=== PATIENT | female | born 1975 | race Caucasian/White ===

== ENCOUNTER 2016-07-19 13:58 | Outpatient (CLI) ==
[2015-12-13 13:12] VITALS: BMI 25.0
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
== END 2016-07-19 13:59 | disposition home or self-care (01) ==
LOC: RAD 13:58
PROVIDERS: ATTEND Nurse Practitioner Family
DX: M54.2 Cervicalgia (principal)

== ENCOUNTER 2016-07-20 13:53 | Outpatient (CLI) ==
[2015-12-13 13:12] VITALS: BMI 25.0
--- NOTE | 2016-07-20 17:29 | MRI ---
EXAM: MRI lumbar spine without IV contrast. DATE: 07/20/2016. HISTORY: Unspecified Dorsaligia. Low back pain and bilateral lower extremity pain/numbness. TECHNIQUE: Sagittal and axial T1W and T2W sequences of the lumbar spine along with sagittal IR and coronal T2W sequences were obtained using 1.2 Althea magnet. No IV contrast. COMPARISON: CT chest 12/13/2015. CT L-spine 12/13/2015. FINDINGS: There are four classic [id number] lumbar vertebra. Previous chest CT demonstrates 1 2 thoracic vertebra with classic paired ribs. At the thoracolumbar junction, there is a transitional vertebra with either hypoplastic ribs or unusual transverse processes. For the purposes of this di ctation, this transitional vertebra is referred to as L1. At the lumbosacral junction, there is a t ransitional vertebra. For the purposes of this dictation, this transitional vertebra is referred to as S1 with lumbarization. Mild rotatory levoscoliosis of the lumbar spine is noted. No acute lumbar fracture, subluxation, os seous malignancy, or pars interarticularis defect is identified. Lumbar vertebra are normal in heig ht. A T2W/T1W bright, 9.6 mm focus in the T12 body is likely a benign hemangioma. Bone marrow sign al is normal. Minor disc space narrowing is seen at L5-S1. S1-2 intervertebral disc is congenitall y narrow. No sacral fracture or stress reaction is apparent. SI joints are unremarkable. Conus me dullaris terminates at L1-2. Visible spinal cord is normal. No retroperitoneal lymphadenopathy, paraspinal mass, or aortic aneurysm is detected. Psoas muscles are normal. Mild bilateral posterior paraspinal muscle atrophy is seen at L5, S1, and S2. Visible portions of the liver, spleen, adrenal glands, pancreas, gallbladder, and kidneys reveal no malignan cy. No bowel obstruction neoplasm is evident. A T2 W bright, 3 cm lesion of the left adnexa is lik mattie an ovarian cyst/dominant follicle. Segmental analysis: T12-L1: Normal. L1-2: Left paracentral disc protrusion (2.2 mm AP x 9 mm transverse) does not contact the conus or cause central stenosis. Each foramen is patent. L2-3: Normal. L3-4: Normal. L4-5: Normal. L5-S1: Minor posterior to foraminal disc bulge, midline disc protrusion (2.7 mm AP x 9 mm transvers e), and mild right facet arthropathy cause minimal right foraminal narrowing. No central canal sten osis. Tiny right facet effusion is seen. S1-2: Partial sacralization of S1. No disc protrusion, central stenosis or foraminal stenosis. IMPRESSIONS: 1. Four classic lumbar vertebra. Transitional vertebra and L1 and S1. 2. No lumbar spine central canal stenosis. 3. Minor right foraminal narrowing at L5-S1. 4. Benign hemangioma in the T12 vertebra. 5. Left adnexal/ovarian cyst (likely benign).
== END 2016-07-20 13:54 | disposition home or self-care (01) ==
LOC: RAD 13:53
PROVIDERS: ATTEND Nurse Practitioner Family
DX: M54.5 Low back pain (principal); G89.29 Other chronic pain

== ENCOUNTER 2016-07-21 10:09 | Emergency (ER) ==
[2016-07-21 10:16] VITALS: BP 114/72; TEMP 97; BMI 25.8
--- NOTE | 2016-07-21 10:32 | ED.PDOC ---
General ED Provider: Dr. DANNIE CARMONA JR Chief Complaint: Back Pain Stated Complaint: INCREASING BACK PAIN OVER SEVERAL MONTHS...HX OF BACK PROBLEMS. HAS RESULTS FROM MRI OF CERVICAL SPINE TWO DAYS AGO...BACK MRI WAS DONE YESTERDAY. 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 on review of past visits has followed up with obgyn, note 12/13/15 had pabs including b12 without concerning results; taya notes is in referral process for neurosurgery will allow im med for pain and indocin - is tender mid lumbar spine but mri appears essentially normal. agree with consultation NS reasonable but would consider neurology first- informed patient Time Seen by Physician: 10:32 Mode of Arrival: Walk-In Information Source: Patient Exam Limitations: No limitations Primary Care Provider: NOHEMY PEDERSON Nursing and Triage Documentation Reviewed and Agree: No Review of Systems - Review Of Systems Constitutional: Reports: Weakness Eyes: Reports: No symptoms Ears, Nose, Mouth, Throat: Reports: No symptoms Respiratory: Reports: No symptoms Cardiac: Reports: No symptoms GI: Reports: No symptoms : Reports: No symptoms Musculoskeletal: Reports: Back pain Skin: Reports: No symptoms Neurological: Reports: Numbness, Tingling, Weakness, Other (NO FOCAL CHANGES ON PE NEGATIVE SLR BILATERALLY) Endocrine: Reports: No symptoms Hematologic/Lymphatic: Reports: No symptoms All Other Systems: Other Past Medical History - Past Medical History Endocrine: Reports: None Cardiovascular: Reports: None Respiratory: Reports: Bronchitis Hematological: Reports: None Gastrointestinal: Reports: None Genitourinary: Reports: UTI, Kidney stones Neuro/Psych: Reports: Migraine Musculoskeletal: Reports: Arthritis, Other (Neck pain ) Cancer: Reports: None Last Menstrual Period: N/A Other Pertinent Past Medical History: HYPOTENSION; "PAUSE" AT 23, CHRONIC NECK PROBLEMS - Surgical History General Surgical History: Reports: Hysterectomy, Tubal ligation - Family History Family History: Reports: Heart - Social History Smoking Status: Never smoker Hx Substance Use: No Alcohol Screening: None - Immunizations Tetanus Shot up to Date: No Physical Exam - Physical Exam Appearance: Well-appearing Pain Distress: Moderate Eyes: MINI, EOMI, Conjunctiva clear ENT: Ears normal, Nose normal, Oropharynx normal Neck: Supple Respiratory: Airway patent, Breath sounds clear, Breath sounds equal, Respirations nonlabored Cardiovascular: RRR, Pulses normal, No rub, No murmur GI/: Soft, Nontender, No masses, Bowel sounds normal, No Organomegaly Musculoskeletal: Normal strength, ROM intact, No edema, No calf tenderness ( BACK TENDERNESS AT LS SPINE) Skin: Warm, Dry, Normal color Neurological: Sensation intact, Motor intact, Reflexes intact, Cranial nerves intact, Alert, Oriented Psychiatric: Affect appropriate, Mood appropriate Critical Care Note - Critical Care Note Total Time (mins): 0 Course - Course Orders, Labs, Meds: Orders Category Date Time Status Ketorolac Tromethamine [Toradol] MEDS 07/21/16 10:32 Discontinued 60 mg IM ONCE STA Promethazine HCl [Phenergan 25 mg/ml Vial] MEDS 07/21/16 10:32 Discontinued 25 mg IM ONCE STA Medications Discontinued Medications Generic Name Dose Route Start Last Admin Trade Name Freq PRN Reason Stop Dose Admin Ketorolac Tromethamine 60 mg 07/21/16 10:32 07/21/16 10:47 Toradol IM 07/21/16 10:33 60 mg ONCE STA Administration Promethazine HCl 25 mg 07/21/16 10:32 07/21/16 10:49 Phenergan 25 Mg/Ml Vial IM 07/21/16 10:33 25 mg ONCE STA Administration Vital Signs: Temp Pulse Resp BP Pulse Ox 07/21/16 10:09 97 F L 79 20 114/72 98 Departure - Departure Time of Disposition: 10:52 Disposition: HOME SELF-CARE Discharge Problem: Back pain Instructions: Low Back Strain (ED), Chronic Back Pain (ED) Condition: Fair Pt referred to PMD for follow-up: Yes Additional Instructions: may try Indocin for pain(not with other NSAIDS) follow up PMD as scheduled call about referrals MRI does not show any ominous findings Prescriptions: Indomethacin [Indocin] 25 mg PO TIDWM PRN #30 capsule PRN Reason: PAIN Allergies/Adverse Reactions: Allergies morphine Adverse Reaction (Verified 07/21/16 10:18) Home Medications: Ambulatory Orders Ibuprofen 600 mg PO PRN PRN 10/19/15 Ibuprofen 200 mg PO Q4-8H PRN 07/18/16 Indomethacin [Indocin] 25 mg PO TIDWM PRN #30 capsule 07/21/16
[2016-07-21] MEDS: TORADOL IM STA (10:47)
[2016-07-21] MEDS: PHENERGAN 25 MG/ML VIAL IM STA (10:49)
== END 2016-07-21 11:07 | disposition home or self-care (01) ==
LOC: ED 10:09
DX: M54.9 Dorsalgia, unspecified (principal); R20.0 Anesthesia of skin; R53.1 Weakness
CPT/HCPCS: 96372; 99283

== ENCOUNTER 2016-12-09 12:04 | Outpatient (CLI) ==
[2016-12-09 13:58] LABS: BILIRUBIN,URINE Negative (NEGATIVE); KETONES,URINE Negative (NEGATIVE); LEUKOCYTE ESTERASE ,URINE 1+ (NEGATIVE); NITRITE,URINE Negative (NEGATIVE); PROTEIN,URINE Negative (NEGATIVE); URINE, BLOOD 1+ (NEGATIVE)
[2016-12-09 14:06] LABS: ADD URINE MICROSCOPIC YES
[2016-12-09 14:07] LABS: BACTERIA,URINE 1+ (NOT PRESENT)
== END 2016-12-09 12:05 | disposition home or self-care (01) ==
LOC: LAB 12:04
PROVIDERS: ATTEND Nurse Practitioner Family
DX: N30.01 Acute cystitis with hematuria (principal)
CPT/HCPCS: 81001; 87086; 87186

== ENCOUNTER 2016-12-12 13:07 | Outpatient (CLI) ==
[2016-12-12 13:48] LABS: BASOPHILS % (AUTO) 0.5 % (0.0-3.0); EOSINOPHILS # (AUTO) 0.5 K/ul (0.0-0.7); EOSINOPHILS % (AUTO) 5.3 % (0.0-7.0); HEMATOCRIT 37.5 % (37.0-47.0); HEMOGLOBIN 12.6 g/dl (12.0-16.0); IMMATURE GRANULOCYTE % (AUTO) 0.2 % (0.0-5.0); LYMPHOCYTES # (AUTO) 0.8 K/uL (0.60-3.4); LYMPHOCYTES % (AUTO) 9.1 (10.0-50.0); MEAN CORPUSCULAR HEMOGLOBIN 29.6 pg (27.0-31.0); MEAN CORPUSCULAR HGB CONC 33.6 (31.8-35.4); MEAN CORPUSCULAR VOLUME 88.2 fl (81.0-99.0); MONOCYTES # (AUTO) 0.8 K/uL (0.4-2.0); MONOCYTES % (AUTO) 8.7 (0-10); NEUTROPHILS # (AUTO) 6.6 K/ul (2.0-6.9); NEUTROPHILS % (AUTO) 76.2; PLATELET COUNT 265 10^3/uL (140-440); RED BLOOD COUNT 4.25 10^6/ul (4.20-5.40); WHITE BLOOD COUNT 8.64 K/ul (4.6-10.2)
[2016-12-12 14:51] LABS: ALBUMIN 4.1 g/dL (3.4-5.0); ALBUMIN/GLOBULIN RATIO 1.14; ANION GAP 13.9; BILIRUBIN,TOTAL 0.76 mg/dL (0.00-1.20); BUN/CREATININE RATIO 8.75; CALCIUM 9.9 mg/dL (8.2-10.2); CREATININE 0.8 mg/dL (0.60-1.30); POTASSIUM 3.9 mmol/L (3.5-5.10); TOTAL PROTEIN 7.7 g/dL (6.4-8.2)
== END 2016-12-12 13:08 | disposition home or self-care (01) ==
LOC: LAB 13:07
PROVIDERS: ATTEND Nurse Practitioner Family
DX: J02.9 Acute pharyngitis, unspecified (principal); N30.01 Acute cystitis with hematuria
CPT/HCPCS: 36415; 80053; 85025; 87651; 87880

== ENCOUNTER 2016-12-14 09:13 | Outpatient (CLI) ==
--- NOTE | 2016-12-14 09:45 | US ---
EXAM: Ultrasound abdomen limited. HISTORY: Elevated liver enzymes. COMPARISON: CT 12/13/2015. TECHNIQUE: Abdominal, real time with image documentation: limited (eg, single organ, quadrant, fol low-up) FINDINGS: The liver demonstrates homogeneous echotexture without intrahepatic biliary dilatation. Portal venous flow is normal in direction. The gallbladder is without shadowing stones, wall thicke lindsey or pericholecystic fluid. Common duct measures approximately 0.5 cm. Visualized portions of t he pancreas are unremarkable. IMPRESSION: No sonographic abnormality of the liver, gallbladder or biliary system.
[2016-12-15 11:51] LABS: GAMMA GLUTAMYL TRANSFERASE 141 IU/L (0-60)
== END 2016-12-14 09:14 | disposition home or self-care (01) ==
LOC: RAD 09:13
PROVIDERS: ATTEND Nurse Practitioner Family
DX: R79.89 Other specified abnormal findings of blood chemistry (principal)
CPT/HCPCS: 36415; 80074; 82977

== ENCOUNTER 2016-12-16 09:48 | Outpatient (CLI) ==
--- NOTE | 2016-12-16 10:26 | CT ---
EXAM: CT of the abdomen pelvis with and without contrast History: Elevated liver enzymes. Comparison: Abdominal ultrasound 12/14/2016, CT abdomen pelvis 12/13/2015 Technique: Multiplanar CT images through the abdomen pelvis were obtained with and without the admi nistration of IV contrast Findings: No consolidation seen within the lower lungs. Calcified granuloma again seen within the r ight lower lobe. No acute osseous abnormalities. No renal stones and no hydronephrosis. Appendix is normal. No discrete gallstones identified by CT . The liver and spleen are not enlarged. No evidence for a fatty liver. Portal veins are patent. Pancreas is within normal limits. No renal masses. No bowel obstruction. No free air. No ascite s. No bladder wall thickening. Uterus is not seen. No perirectal inflammation. No pathologically enlarged lymph nodes. 2 cm cyst within the left ovary but decreased in size compared to the prior study. Impression: 1. Small 2 cm left ovarian cyst is decreased in size compared to the prior CT. 2. No acute intra-abdominal or pelvic process. 3. Normal appearing liver.
== END 2016-12-16 09:49 | disposition home or self-care (01) ==
LOC: RAD 09:48
PROVIDERS: ATTEND Nurse Practitioner Family
DX: R74.8 Abnormal levels of other serum enzymes (principal); R10.2 Pelvic and perineal pain

== ENCOUNTER 2016-12-16 13:43 | Emergency (ER) ==
[2016-12-16 13:48] VITALS: BP 136/83; TEMP 98; BMI 24.7
[2016-12-16 14:26] LABS: BILIRUBIN,URINE Negative (NEGATIVE); KETONES,URINE Negative (NEGATIVE); LEUKOCYTE ESTERASE ,URINE Negative (NEGATIVE); NITRITE,URINE Negative (NEGATIVE); PROTEIN,URINE Negative (NEGATIVE); URINE, BLOOD Trace-intact (NEGATIVE)
[2016-12-16 14:28] LABS: BASOPHILS % (AUTO) 0.7 % (0.0-3.0); EOSINOPHILS # (AUTO) 0.4 K/ul (0.0-0.7); EOSINOPHILS % (AUTO) 7.3 % (0.0-7.0); HEMOGLOBIN 12.5 g/dl (12.0-16.0); IMMATURE GRANULOCYTE % (AUTO) 0.3 % (0.0-5.0); LYMPHOCYTES # (AUTO) 1.2 K/uL (0.60-3.4); LYMPHOCYTES % (AUTO) 19.1 (10.0-50.0); MEAN CORPUSCULAR HEMOGLOBIN 29.4 pg (27.0-31.0); MEAN CORPUSCULAR HGB CONC 34.7 (31.8-35.4); MEAN CORPUSCULAR VOLUME 84.7 fl (81.0-99.0); MONOCYTES # (AUTO) 0.4 K/uL (0.4-2.0); NEUTROPHILS % (AUTO) 65.6; PLATELET COUNT 291 10^3/uL (140-440); RED BLOOD COUNT 4.25 10^6/ul (4.20-5.40); WHITE BLOOD COUNT 6.02 K/ul (4.6-10.2)
[2016-12-16] MEDS ORDERED: ROCEPHIN IM STA (14:28)
[2016-12-16] MEDS ORDERED: LIDOCAINE 1 % AMP 5 ML (SUTURES) IM STA (14:28)
[2016-12-16 14:37] LABS: ADD URINE MICROSCOPIC YES
[2016-12-16 14:47] LABS: ALBUMIN 3.8 g/dL (3.4-5.0); ALBUMIN/GLOBULIN RATIO 1.12; ANION GAP 11.8; BILIRUBIN,TOTAL 0.49 mg/dL (0.00-1.20); BUN/CREATININE RATIO 14.28; CALCIUM 9.4 mg/dL (8.2-10.2); CREATININE 0.84 mg/dL (0.60-1.30); POTASSIUM 3.8 mmol/L (3.5-5.10); TOTAL PROTEIN 7.2 g/dL (6.4-8.2)
--- NOTE | 2016-12-16 15:00 | ED.PDOC ---
General ED Provider: Dr. AAMIR SAGASTUME Chief Complaint: Urinary Problem Stated Complaint: uti sign and symptoms, elevated out pt LFT CHRONIC Time Seen by Physician: 13:45 (SEEN WITH IZZY X2 AND WITH MEGAN X1 ) Mode of Arrival: Walk-In Information Source: Patient Exam Limitations: No limitations [facility] and Triage Documentation Reviewed and Agree: Yes (UTI IS NOT IMPROVING) Miscellaneous Complaint Exam - Complex/Multi-System Complaint/Exam Onset/Duration: pt's uti is still somewhat symptomatic almost finised clinic meds Symptoms Are: Still present Episodes Lasting: Days Initial Severity: Mild Current Severity: Mild Location of Pain: left flank had out pt ct which was negative Pain Radiates to: left flank Alleviating: nothing Associated Signs and Symptoms: Reports: Nausea, Dysuria. 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, Prior MRSA, Prior VRE, Recent trauma, Remote trauma Related History: Recent Illness (uti elevated out pt LFT) Recent Echo/LV Function: No Respiratory Distress: None JVD Present: No Tachypnea Present: No Stridor Present: No Abdominal Findings: Present: Normal findings Glascow Coma Scale (see protocol): 15 Meningeal Signs Positive: No Focal Weakness: Present: None Focal Sensory Loss: Present: None Gait: Normal Gag Reflex Present: Yes Babinski Sign: Negative Right, Negative Left Skin Findings: Present: Normal findings Joint Swelling Present: No In-Dwelling Device Present: No Differential Diagnosis: UTI, Other (RADIOLUCENT STONE ) Quality Indicators for Cardiac Chest Pain: EKG in 10min. Quality Indicators for AMI: EKG in 10min. Review of Systems - Review Of Systems Constitutional: Reports: No symptoms Eyes: Reports: No symptoms Ears, Nose, Mouth, Throat: Reports: No symptoms Respiratory: Reports: No symptoms Cardiac: Reports: No symptoms GI: Reports: Nausea : Reports: Dysuria, Flank pain Musculoskeletal: Reports: No symptoms Skin: Reports: No symptoms Neurological: Reports: No symptoms Endocrine: Reports: No symptoms Hematologic/Lymphatic: Reports: No symptoms All Other Systems: Reviewed and Negative Past Medical History - Past Medical History Previously Healthy: Yes Endocrine: Reports: None Cardiovascular: Reports: None Respiratory: Reports: Bronchitis Hematological: Reports: None Gastrointestinal: Reports: None Genitourinary: Reports: UTI, Kidney stones Neuro/Psych: Reports: Migraine Musculoskeletal: Reports: Arthritis, Other (Neck pain ) Cancer: Reports: None Last Menstrual Period: none Other Pertinent Past Medical History: HYPOTENSION; "PAUSE" AT 23, CHRONIC NECK PROBLEMS - Surgical History General Surgical History: Reports: Hysterectomy, Tubal ligation - Family History Family History: Reports: Heart - Social History Smoking Status: Never smoker Hx Substance Use: No Alcohol Screening: None Physical Exam - Physical Exam Appearance: Well-appearing, No pain distress, Well-nourished Eyes: MINI, EOMI, Conjunctiva clear ENT: Ears normal, Nose normal, Oropharynx normal Respiratory: Airway patent, Breath sounds clear, Breath sounds equal, Respirations nonlabored Cardiovascular: RRR, Pulses normal, No rub, No murmur GI/: Soft, Nontender, No masses, Bowel sounds normal, No Organomegaly Musculoskeletal: Normal strength, ROM intact, No edema, No calf tenderness Skin: Warm, Dry, Normal color Neurological: Sensation intact, Motor intact, Reflexes intact, Cranial nerves intact, Alert, Oriented Psychiatric: Affect appropriate, Mood appropriate Interpretation - Radiology Interpretation Radiology Interpretation By: Radiologist Radiology Results: No acute changes Exam Interpreted: CT Scan Critical Care Note - Critical Care Note Total Time (mins): 0 Course - Course Hematology/Chemistry: 12/16/16 14:23 12/16/16 14:23 Orders, Labs, Meds: Lab Review 12/16/16 12/16/16 14:13 14:23 WBC 6.02 RBC 4.25 Hgb 12.5 Hct 36.0 L MCV 84.7 MCH 29.4 MCHC 34.7 RDW Coeff of Lia 12.0 Plt Count 291 Immature Gran % (Auto) 0.3 Neut % (Auto) 65.6 Lymph % (Auto) 19.1 [place] % (Auto) 7.0 Eos % (Auto) 7.3 H Baso % (Auto) 0.7 Immature Gran # (Auto) 0.0 Neut # 4.0 Lymph # 1.2 [place] # 0.4 Eos # 0.4 Baso # 0.0 Sodium 139 Potassium 3.8 Chloride 104 Carbon Dioxide 27 Anion Gap 11.8 BUN 12 Creatinine 0.84 Estimated GFR (MDRD) 74.00 BUN/Creatinine Ratio 14.28 Glucose 97 Calcium 9.4 Total Bilirubin 0.49 AST 124 H ALT 179 H Alkaline Phosphatase 159 H Total Protein 7.2 Albumin 3.8 Globulin 3.4 Albumin/Globulin Ratio 1.12 Urine Color Yellow Urine Clarity Clear Urine pH 7.0 Ur Specific [place] 1.010 Urine Protein Negative Urine Glucose (UA) Negative Urine Ketones Negative Urine Blood Trace-intact Urine Nitrite Negative Urine Bilirubin Negative Urine Urobilinogen 1.0 Ur Leukocyte Esterase Negative Urine Microscopic RBC 2-5 Ur Squamous Epith Cells 10-20 Orders Category Date Time Status CBC W/ AUTO DIFF Stat LAB 12/16/16 14:23 Completed COMPREHENSIVE METABOLIC PANEL Stat LAB 12/16/16 14:23 Completed HEPATITIS PANEL, ACUTE Stat LAB 12/16/16 14:57 Ordered MISCELLANEOUS SEND OUT Routine LAB 12/16/16 14:55 Ordered URINALYSIS C & S IF INDICATED Stat LAB 12/16/16 14:13 Completed Ceftriaxone Sodium [Rocephin] MEDS 12/16/16 14:28 Discontinued 1 gm IM ONCE STA Lidocaine HCl/Pf [Lidocaine 1 % Amp 5 ml (Sutures)] MEDS 12/16/16 14:28 Discontinued 2.1 ml IM ONCE STA Medications Discontinued Medications Generic Name Dose Route Start Last Admin Trade Name Ijeoma PRN Reason Stop Dose Admin Ceftriaxone Sodium 1 gm 12/16/16 14:28 Rocephin IM 12/16/16 14:29 ONCE STA Lidocaine HCl 2.1 ml 12/16/16 14:28 Lidocaine 1 % Amp 5 Ml (Sutures) IM 12/16/16 14:29 ONCE STA Vital Signs: Temp Pulse Resp BP Pulse Ox 12/16/16 13:43 98.0 F 86 18 136/83 98 Departure - Departure Time of Disposition: 15:02 Disposition: HOME SELF-CARE Discharge Problem: Urinary symptoms Instructions: Hematuria (ED), Kidney Stones (ED), Renal Colic (ED), Flank Pain (ED) Condition: Good Pt referred to PMD for follow-up: Yes Additional Instructions: YOU MAY HAVE RADIOLUCENT STONE FOR WHICH I.V.P OR RENAL ULTRASOUND IS NEED TO DIAGNOSE IT PROPERLY. THIS MAY BE THE REASON FOR YOUR URINE BLOOD AND BACK PAIN. Please call your Family Physician as soon as possible to schedule a follow-up appointment. Allergies/Adverse Reactions: Allergies morphine Adverse Reaction (Verified 12/16/16 13:49)
--- NOTE | 2016-12-16 15:54 | US ---
EXAM: RENAL ULTRASOUND, BILATERAL HISTORY: Flank pain, trace blood FINDINGS: Ultrasound renal, bilateral. [place]-scale ultrasound and color Doppler imaging was perform ed. The right kidney measures 11.3 x 5.2 x 4.1 centimeters. The left kidney measures 10.6 x 5.2 x 5.0 centimeters. General cortical echogenicity and volume are normal for age. No solid or cystic cortical masses. N o hydronephrosis is identified. The urinary bladder was poorly distended limiting its evaluation a lthough grossly unremarkable. Ureteral jets were not identified during the exam. IMPRESSION: No hydronephrosis or obvious etiology for pain/hematuria. Further workup may be needed.
--- NOTE | 2016-12-16 15:57 | US ---
EXAM: Ultrasound abdomen limited. HISTORY: Abnormal liver function tests. COMPARISON: CT earlier the same day. TECHNIQUE: Abdominal, real time with image documentation: limited (eg, single organ, quadrant, fol low-up) FINDINGS: The liver demonstrates homogeneous echotexture without intrahepatic biliary dilatation. Portal venous flow is normal in direction. The gallbladder is without shadowing stones, wall thicke lindsey or pericholecystic fluid. Common duct measures approximately 0.5 cm. Visualized portions of t he pancreas are unremarkable. IMPRESSION: No sonographic abnormality of the liver, gallbladder or biliary system.
== END 2016-12-16 16:38 | disposition home or self-care (01) ==
LOC: ED 13:43
DX: R10.9 Unspecified abdominal pain (principal); R11.0 Nausea; R30.0 Dysuria; R31.9 Hematuria, unspecified; M54.9 Dorsalgia, unspecified; R94.5 Abnormal results of liver function studies; N39.0 Urinary tract infection, site not specified; Z87.442 Personal history of urinary calculi
CPT/HCPCS: 36415; 76770; 80053; 80074; 81001; 83516; 85025; 99283

== ENCOUNTER 2017-11-28 12:21 | Outpatient (CLI) | END 2017-11-28 12:22 | disposition home or self-care (01) | LOC: RHC-LAB 12:21 | PROVIDERS: ATTEND Nurse Practitioner Family | DX: J02.9 Acute pharyngitis, unspecified (principal); R50.9 Fever, unspecified; Z00.00 Encounter for general adult medical examination without abnormal findings ==

== ENCOUNTER 2017-11-28 12:48 | Outpatient (CLI) | END 2017-11-28 12:49 | disposition home or self-care (01) | LOC: RHC-LAB 12:48 | PROVIDERS: ATTEND Nurse Practitioner Family | DX: J02.9 Acute pharyngitis, unspecified (principal); R50.9 Fever, unspecified; Z00.00 Encounter for general adult medical examination without abnormal findings | CPT/HCPCS: 36415; 80053; 80061; 84443; 85025; 87651 ==

== ENCOUNTER 2017-12-04 11:07 | Outpatient (CLI) | END 2017-12-04 11:08 | disposition home or self-care (01) | LOC: RAD 11:07 | PROVIDERS: ATTEND Nurse Practitioner Family | DX: Z12.31 Encounter for screening mammogram for malignant neoplasm of breast (principal) | CPT/HCPCS: 77067 ==

== ENCOUNTER 2017-12-12 11:49 | Outpatient (CLI) | END 2017-12-12 11:50 | disposition home or self-care (01) | LOC: CAR 11:49 | PROVIDERS: ATTEND Nurse Practitioner Family | DX: R00.2 Palpitations (principal) | CPT/HCPCS: 93005; 93010 ==

== ENCOUNTER 2017-12-14 11:53 | Outpatient (CLI) ==
--- NOTE | 2017-12-15 08:06 | MRI ---
EXAM: MRI lumbar spine without and with IV contrast. DATE: 12/14/2017. HISTORY: Dorsaligia. TECHNIQUE: Sagittal and axial T1W, T2W, and T1W postcontrast sequences of the lumbar spine along wit h sagittal IR and coronal T2W sequences were obtained using 1.2 Althea magnet. CONTRAST: Omniscan - 10 ml IV. COMPARISON: MRI lumbar spine 07/20/2016. CT chest 12/13/2015. CT abdomen/pelvis 12/16/2016. FINDINGS: There are four classic [id number] lumbar vertebra. Previous chest CT demonstrates tw elfth thoracic vertebra with classic paired ribs. The next lower vertebral body is transitional, wit h either hypoplastic ribs or unusual transverse processes. For the purposes of this dictation, this transitional vertebra is referred to as L1. At the lumbosacral junction, there is also a transitiona l vertebra, which will referred to as S1 with lumbarization. Mild leftward curvature of the lower thoracic and lumbar spine is observed. No acute lumbar fracture , subluxation, osseous malignancy, or pars interarticularis defect is demonstrated. The lumbar verte bra are normal in height. Chronic, small Schmorl's nodes are visible at T12. T2W/T1W bright, 8.6 mm focus in the left side of the T12 body and similar 8 mm focus in the left side of the L3 body may re present focal fat deposition or hemangiomas. T2W/T1W bone marrow signal is somewhat heterogeneous du e to areas of fatty infiltration. Lumbar intervertebral discs are normal in height. A small disc sp lily has formed at S1-2. No acute sacral fracture or stress reaction is evident. Areas of T2W/T1W br ight signal in the sacral ala and iliac bones are consistent with fatty infiltration. SI joints are unremarkable. Conus medullaris terminates at L1-2. Visible spinal cord is normal. No abnormal cont rast enhancement is identified within the spinal cord, nerve roots, vertebral bodies or intervertebra l discs. No retroperitoneal lymphadenopathy, paraspinal mass, or aortic aneurysm is detected. Psoas muscles a re normal. There is mild bilateral posterior paraspinal muscle atrophy. Visible portions of the sarita er, spleen, adrenal glands and kidneys reveal no abnormality. Visible portion of gallbladder is norm al. CBD is not enlarged. No bowel obstruction or malignancy is identified. A T2W bright, T1W dark, non-enhancing 1.9 x 2.2 x 2.2 cm lesion in the right adnexa likely represents a dominant right ovari an follicle. Small follicles are evident in the left ovary. Segmental analysis: T11-12: Sagittal images reveal no abnormality. T12-L1: Posterior midline disc protrusion (1.2 mm AP x 2 mm transverse) does not cause cord compress ion, central stenosis or foraminal stenosis. L1-2: Midline to left paracentral disc protrusion (2 mm AP x 15 mm transverse) does not cause centra l stenosis or foraminal stenosis. L2-3: Normal. L3-4: Normal. L4-5: Normal. L5-S1: Minor posterior to foraminal disc bulge, moderate right facet arthropathy, and minor left fac et arthropathy cause slight bilateral inferior foraminal narrowing. Tiny right facet effusion is pre sent. No central canal stenosis. S1-2: Partial lumbarization of S1. No disc protrusion, central stenosis or foraminal stenosis. IMPRESSIONS: 1. Four classic lumbar vertebra (L2 thru L5). Transitional L1 and S1 vertebra. 2. Minor bilateral foraminal narrowing at L5-S1. No nerve root compression. 3. No lumbar spine central canal stenosis. 4. Bone marrow fatty infiltration - consider osteopenia. 5. Focal fat deposition vs benign hemangiomas at T12 and L3. 6. Probable dominant follicle in the right ovary.
== END 2017-12-14 11:54 ==
LOC: RAD 11:53
PROVIDERS: ATTEND Nurse Practitioner Family
DX: M54.9 Dorsalgia, unspecified (principal); G89.29 Other chronic pain; M51.26 Other intervertebral disc displacement, lumbar region

== ENCOUNTER 2017-12-18 12:27 | Outpatient (CLI) | END 2017-12-18 12:28 | disposition home or self-care (01) | LOC: CAR 12:27 | PROVIDERS: ATTEND Nurse Practitioner Family | DX: R00.2 Palpitations (principal) | CPT/HCPCS: 93227 ==

== ENCOUNTER 2017-12-27 06:36 | Outpatient (CLI) ==
--- NOTE | 2017-12-27 09:11 | ECHO2D ---
Date of Exam: 12/27/17 Ordering Physician: DR. SHAMIR HUTCHINSON Room #: OP Reason for Echo: SINUS TACHYCARDIA BY EKG M-Mode Normal Adult Results LV Dimensions Normal Adult Results AoV Opening excursions >1.6 >1.6 LVEDD-base- 3.5-5.8 3.8 Ao root dimensions 2.0-3.7 2.7 LVESD-base- 3.1-4.6 L. Atrium dimensions 1.9-3.8 2.7 Post. Wall thickness 0.8-1.1 1.0 IV septum (thickness) 0.7-1.2 1.0 Post. Wall excursion 0.72-1.3 NORMAL Septal motion NORMAL Systolic motion R. Ventricular cavity 1.5-2.0 NORMAL LVEF 60% 57% Paradoxical septal wall motion NORMAL 2-D : 2-D M Mode Echocardiogram was performed using apical four chamber and left parasternal long and short axis views. Mitral, tricuspid and aortic valves appear to be normal. Contractility of the left ventricle seems to be normal, so is the cavity size. Left atrial cavity size and aortic root appear to be normal. There is no pericardial effusion. There is no thrombus noted in the left ventricular or left aortic cavity. No mitral valve prolapse noted. M-MODE: MV: NORMAL AV: NORMAL TV: NORMAL PV: CHAMBER SIZE: NORMAL WALL MOTION: NORMAL PERICARDIUM: NORMAL INTERPRETATION: 1. NORMAL 2 "D" "M" MODE ECHO MTDD
== END 2017-12-27 06:37 | disposition home or self-care (01) ==
LOC: CAR 06:36
PROVIDERS: ATTEND Nurse Practitioner Family
DX: R00.0 Tachycardia, unspecified (principal)

== ENCOUNTER 2018-05-27 15:03 | Emergency (ER) ==
[2018-05-27 15:11] VITALS: BP 138/94; TEMP 98.1; BMI 23.0
[2018-05-27] MEDS ORDERED: DUONEB NEB ONE (15:29)
[2018-05-27] MEDS ORDERED: DUONEB NEB STA (15:30)
--- NOTE | 2018-05-27 16:44 | CT ---
EXAM: CT angiogram of the chest with contrast HISTORY: Shortness of breath. TECHNIQUE: Helical imaging of the chest was performed following the intravenous administration of co ntrast. 3 mm thin axial images and coronal and sagittal reconstructions and rotated 3-D reconstructi ons were provided for interpretation. Comparison 12/13/2015 CT angiogram of the chest. FINDINGS: No definite filling defects are identified within the branches of the pulmonary arteries. The central pulmonary arteries are normal. The heart is normal size. There is a normal appearance of the thoracic aorta. The lungs are clear. No lytic or blastic lesions are seen within the osseous structures. No lytic or blastic lesions are seen within the osseous structures. IMPRESSION: There is no acute pulmonary embolism.
--- NOTE | 2018-05-27 16:59 | ED.PDOC ---
General ED Provider: Dr. AAMIR SAGASTUME Chief Complaint: Chest Wall Injury/Pain Stated Complaint: cough, chest wall pain for 2 months flu like symptoms short of air Time Seen by Physician: 15:00 (nurse present at all time pain is chronic ) Mode of Arrival: Walk-In Information Source: Patient Exam Limitations: No limitations (pain in chest wall is reproduceable by palpation of chest wall and with cough) [facility] and Triage Documentation Reviewed and Agree: Yes Does patient meet sepsis criteria?: No System Inflammatory Response Syndrome: Not Applicable Sepsis Protocol: For patient's 13 years and over: Temp is 96.8 and below OR 101 and greater Pulse >90 BPM Resp >20/minute Acutely Altered Mental Status Are patient's symptoms suggestive of a new infection, such as: -Pneumonia -Skin, Soft Tissue -Endocarditis -UTI -Bone, Joint Infection -Implantable Device -Acute Abdominal Infection -Wound Infection -Meningitis -Blood Stream Catheter Infection -Unknown Respiratory Complaint Exam - Respiratory Complaint/Exam Symptoms Are: Still present Timing: Intermittent (with cough) Initial Severity: Mild Current Severity: Mild Location: Nose, Throat, Chest Character: Reports: Non-productive cough, Dry cough Aggravating: Reports: URI Alleviating: Reports: Spontaneous resolution Associated Signs and Symptoms: Reports: Chills, URI, Nasal congestion. Denies: Rapid breathing, Dyspnea, Fever, Chest pain, Pleuritic chest pain, Wheezing, Hemoptysis, Dizziness, Calf pain, Calf swelling, Edema, Hoarseness, Sinus discomfort, Vomiting, Sore throat, Weight loss, Decreased oral intake, Increased thirst, Increased appetite, Increased urination History of Healthcare-Acquired Pneumonia: No Related Surgical History: Reports: None Pulmonary Embolism Risk Factors: None Cardiac Risk Factors: Reports: None Pseudomonas Risk Factors: Reports: None Tuberculosis Risk Factors: Reports: None Status Asthmaticus Risk Factors: Reports: None Home Oxygen Use: No Recent Stress Test: No Recent Echo/LV Function: No Current Antibiotic Use: No Current Asthma Medication Use: No Respiratory Distress: None Inadequate Respiratory Effort: No Dysphagia Present: No Stridor Present: No JVD Present: No Accessory Muscle Use: No Retractions: Not Present Diminished Breath Sounds: No Sinus Tenderness: None Grunting Respirations: No Kussmaul Respirations: No Differential Diagnoses: Pneumonia, Bronchitis, URI, Influenza Review of Systems - Review Of Systems Constitutional: Reports: Chills, Malaise Eyes: Reports: No symptoms Ears, Nose, Mouth, Throat: Reports: No symptoms Respiratory: Reports: Cough Cardiac: Reports: Chest pain (wall only with movement ) GI: Reports: No symptoms : Reports: No symptoms Musculoskeletal: Reports: No symptoms Skin: Reports: No symptoms Neurological: Reports: No symptoms Endocrine: Reports: No symptoms Hematologic/Lymphatic: Reports: No symptoms All Other Systems: Reviewed and Negative Past Medical History - Past Medical History Previously Healthy: Yes Endocrine: Reports: None Cardiovascular: Reports: None Respiratory: Reports: Bronchitis Hematological: Reports: None Gastrointestinal: Reports: None Genitourinary: Reports: UTI, Kidney stones Neuro/Psych: Reports: Migraine Musculoskeletal: Reports: Arthritis, Other (Neck pain ) Cancer: Reports: None Last Menstrual Period: NA Other Pertinent Past Medical History: HYPOTENSION; "PAUSE" AT 23, CHRONIC NECK PROBLEMS - Surgical History General Surgical History: Reports: Hysterectomy, Tubal ligation - Family History Family History: Reports: Heart - Social History Smoking Status: Never smoker, Chews tobacco Hx Substance Use: Yes Alcohol Screening: Occasionally - Immunizations Tetanus Shot up to Date: Yes Physical Exam - Physical Exam Appearance: Well-appearing, No pain distress, Well-nourished Eyes: MINI, EOMI, Conjunctiva clear ENT: Ears normal, Nose normal, Oropharynx normal Respiratory: Airway patent, Breath sounds clear, Breath sounds equal, Respirations nonlabored Cardiovascular: RRR, Pulses normal, No rub, No murmur GI/: Soft, Nontender, No masses, Bowel sounds normal, No Organomegaly Musculoskeletal: Normal strength (chest wall tender on palpation same pain ) Skin: Warm, Dry, Normal color Neurological: Sensation intact, Motor intact, Reflexes intact, Cranial nerves intact, Alert, Oriented Psychiatric: Affect appropriate, Mood appropriate Interpretation - Radiology Interpretation Radiology Interpretation By: Radiologist Radiology Results: No acute changes Exam Interpreted: CT Scan (no pe ) - Watch Train Inspector Rate: Normal Rhythm: Sinus Ectopy: None - EKG Interpretation Rate: Normal Rhythm: Sinus Critical Care Note - Critical Care Note Total Time (mins): 0 Course - Course Hematology/Chemistry: 05/27/18 15:23 05/27/18 15:23 Orders, Labs, Meds: Lab Review 05/27/18 05/27/18 05/27/18 15:23 15:23 15:23 WBC 9.52 RBC 4.29 Hgb 12.9 Hct 38.1 MCV 88.8 MCH 30.1 MCHC 33.9 RDW Coeff of Lia 12.4 Plt Count 301 Immature Gran % (Auto) 0.2 Neut % (Auto) 76.5 Lymph % (Auto) 16.3 [place] % (Auto) 5.0 Eos % (Auto) 1.6 Baso % (Auto) 0.4 Immature Gran # (Auto) 0.0 Neut # (Auto) 7.3 H Lymph # (Auto) 1.6 [place] # (Auto) 0.5 Eos # (Auto) 0.2 Baso # (Auto) 0.0 PT 9.4 INR 0.94 APTT 26.1 Sodium 134.4 L Potassium 3.92 Chloride 102.5 Carbon Dioxide 24.9 Anion Gap 10.92 BUN 10.5 Creatinine 0.64 Estimated GFR (MDRD) 101.00 BUN/Creatinine Ratio 16.40 Glucose 101.7 Calcium 9.44 Total Bilirubin 0.67 AST 37.1 H ALT 28.4 Alkaline Phosphatase 95.8 Total Creatine Kinase 264.1 H CK-MB (CK-2) 3.310 H CK-MB (CK-2) % 1.2500 Troponin I < 0.012 Total Protein 8.16 Albumin 4.72 Globulin 3.44 Albumin/Globulin Ratio 1.37 Influ A Molecular Assay Influ B Molecular Assay 05/27/18 15:27 WBC RBC Hgb Hct MCV MCH MCHC RDW Coeff of Lia Plt Count Immature Gran % (Auto) Neut % (Auto) Lymph % (Auto) [place] % (Auto) Eos % (Auto) Baso % (Auto) Immature Gran # (Auto) Neut # (Auto) Lymph # (Auto) [place] # (Auto) Eos # (Auto) Baso # (Auto) PT INR APTT Sodium Potassium Chloride Carbon Dioxide Anion Gap BUN Creatinine Estimated GFR (MDRD) BUN/Creatinine Ratio Glucose Calcium Total Bilirubin AST ALT Alkaline Phosphatase Total Creatine Kinase CK-MB (CK-2) CK-MB (CK-2) % Troponin I Total Protein Albumin Globulin Albumin/Globulin Ratio Influ A Molecular Assay Negative by naat Influ B Molecular Assay Negative by naat Orders Category Date Time Status EKG-(ED ONLY) Stat CARDIO 05/27/18 15:23 Completed NEBULIZER TREATMENT Stat CARDIO 05/27/18 15:31 Completed NPO REMINDER: IMAGING ONCE CARE 05/27/18 15:23 Active ED IV/MEDIPORT/POWERPORT .ONCE EMERGENCY 05/27/18 15:23 Active CBC W/ AUTO DIFF Stat LAB 05/27/18 15:23 Completed COMPREHENSIVE METABOLIC PANEL Stat LAB 05/27/18 15:23 Completed CREATINE KINASE Stat LAB 05/27/18 15:23 Completed FLU A/B MOLECULAR Stat LAB 05/27/18 15:27 Completed MOLECULAR GROUP A STREP Stat LAB 05/27/18 15:27 Completed PARTIAL THROMBOPLASTIN TIME Stat LAB 05/27/18 15:23 Completed PT WITH INR Stat LAB 05/27/18 15:23 Completed TROPONIN I Stat LAB 05/27/18 15:23 Completed 0.9 % Sodium Chloride [Saline Flush] MEDS 05/27/18 15:23 Ordered 1 syr IVF PRN PRN Ipratropium/Albuterol Neb [Duoneb] MEDS 05/27/18 15:29 Discontinued 1 vial NEB .STK-MED ONE Ipratropium/Albuterol Neb [Duoneb] MEDS 05/27/18 15:30 Discontinued 1 vial NEB ONCE STA CT CHEST PE PROTOCOL Stat RADS 05/27/18 15:23 Completed Medications Generic Name Dose Route Start Last Admin Trade Name Freq PRN Reason Stop Dose Admin Sodium Chloride 1 syr 05/27/18 15:23 Saline Flush IVF PRN PRN To flush IV Discontinued Medications Generic Name Dose Route Start Last Admin Trade Name Freq PRN Reason Stop Dose Admin Albuterol/Ipratropium 1 vial 05/27/18 15:30 05/27/18 15:42 Duoneb NEB 05/27/18 15:31 Not Given ONCE STA Vital Signs: Temp Pulse Resp BP Pulse Ox 05/27/18 15:03 98.1 F 108 H 22 138/94 H 100 Departure - Departure Time of Disposition: 17:02 Disposition: HOME SELF-CARE Discharge Problem: Chest wall pain, Bronchitis Instructions: Chest Wall Pain (ED), Chest Pain (DC) Condition: Good Pt referred to PMD for follow-up: Yes IPMP verified?: No Additional Instructions: Please call your Family Physician as soon as possible to schedule a follow-up appointment. Allergies/Adverse Reactions: Allergies morphine Adverse Reaction (Verified 12/16/16 13:49) Home Medications: Ambulatory Orders Tizanidine HCl [Zanaflex] 4 mg PO DAILY 05/27/18 Tramadol HCl 50 mg PO BID PRN 05/27/18 Disposition Discussed With: Patient, Family
== END 2018-05-27 17:09 | disposition home or self-care (01) ==
LOC: ED 15:03
DX: J40 Bronchitis, not specified as acute or chronic (principal); R07.89 Other chest pain; Z72.0 Tobacco use
CPT/HCPCS: 36415; 80053; 82550; 82553; 84484; 85025; 85610; 85730; 87502; 87651; 93005; 93010; 94640; 99283

== ENCOUNTER 2018-06-21 11:06 | Outpatient (CLI) | END 2018-06-21 11:07 | disposition home or self-care (01) | LOC: LAB 11:06 | PROVIDERS: ATTEND Nurse Practitioner Family | DX: R00.0 Tachycardia, unspecified (principal); R00.2 Palpitations; E78.5 Hyperlipidemia, unspecified; E55.9 Vitamin D deficiency, unspecified | CPT/HCPCS: 36415; 80053; 80061; 82306; 84443; 85025; 93005; 93010 ==